=== PATIENT | male | born 1930 | race Caucasian/White ===

== ENCOUNTER 2017-03-20 22:08 | Emergency (ER) | payer MEDICARE, BC ==
[~2017-03-20 22:08] MED LIST: AMOXICILLIN500 MG PO; ARICEPT10 MG PO; ASPIRIN81 MG PO; BACTRIM DS1 TAB PO; CEPHALEXIN250 MG PO; CIPROFLOXACN500 MG PO; CYMBALTA20 MG PO; NAMENDA10 MG PO; RAPAFLO8 MG PO; [UNRECOGNIZED DRUG - OTHER] EX
== END 2017-03-20 22:24 | disposition left against medical advice (07) ==
LOC: ED 22:08 → LWOBS 22:24
DX: Z91.19 Patient's noncompliance with other medical treatment and regimen (principal)

== ENCOUNTER 2017-03-21 11:29 | Emergency (ER) | payer MEDICARE, BC ==
[~2017-03-21] VITALS: Ht 180.3 cm; Wt 75.0 kg
[2017-03-21 12:30] VITALS: BP 131/74
== END 2017-03-21 12:36 | disposition home or self-care (01) ==
LOC: ED 11:29
PROC: 0T2BX0Z Change Drainage Device in Bladder, External Approach (ICD-10-PCS; principal; 2017-03-21)
DX: T83.090A Other mechanical complication of cystostomy catheter, initial encounter (principal); G30.9 Alzheimer's disease, unspecified; F02.80 Dementia in other diseases classified elsewhere, unspecified severity, without behavioral disturbance, psychotic disturbance, mood disturbance, and anxiety; N40.0 Benign prostatic hyperplasia without lower urinary tract symptoms; Y84.6 Urinary catheterization as the cause of abnormal reaction of the patient, or of later complication, without mention of misadventure at the time of the procedure

== ENCOUNTER 2017-04-15 07:20 | Emergency (ER) | payer MEDICARE, BC ==
[~2017-04-15] VITALS: Ht 180.3 cm; Wt 73.4 kg
[2017-04-15 08:28] LABS: URINE BILIRUBIN - DIPSTICK NEGATIVE (NEGATIVE); URINE BLOOD DIPSTICK SMALL (NEGATIVE); URINE CLARITY SLIGHT CLOUDY; URINE COLOR YELLOW; URINE GLUCOSE - DIPSTICK NEGATIVE (NEGATIVE); URINE KETONE NEGATIVE (NEGATIVE); URINE PH 6.5 (4.5-8.0); URINE PROTEIN - DIPSTICK NEGATIVE (NEG-TRACE); URINE SPECIFIC GRAVITY 1.015; URINE UROBILINOGEN - DIPSTICK 0.2 E.U./dL (0.2)
[2017-04-15 08:30] LABS: URINE LEUK ESTERASE MODERATE (NEGATIVE); URINE NITRITE - DIPSTICK POSITIVE (Negative)
[2017-04-15 08:31] LABS: URINE WBC >100 WBC/hpf (0-5)
[2017-04-15 08:32] LABS: URINE BACTERIA MODERATE hpf; URINE RBC 0-2 RBC/hpf (0-5)
[2017-04-15] MEDS ORDERED: BACTRIM DS1 TAB PO (08:40)
[2017-04-15 08:46] VITALS: BP 138/73
== END 2017-04-15 08:46 | disposition home or self-care (01) ==
LOC: ED 07:20
PROVIDERS: Emergency Medicine
PROC: 0T2BX0Z Change Drainage Device in Bladder, External Approach (ICD-10-PCS; principal; 2017-04-15)
DX: Z46.6 Encounter for fitting and adjustment of urinary device (principal); B96.4 Proteus (mirabilis) (morganii) as the cause of diseases classified elsewhere

== ENCOUNTER 2017-06-27 19:20 | Emergency (ER) | payer MEDICARE, BC ==
[~2017-06-27] VITALS: Ht 180.3 cm; Wt 75.8 kg
[2017-06-27] MEDS ORDERED: CYMBALTA60 MG PO (19:35)
[2017-06-27 22:00] VITALS: BP 131/71
[2017-06-27] MEDS ORDERED: CIPROFLOXACN500 MG PO (22:09)
== END 2017-06-27 22:00 | disposition home or self-care (01) ==
LOC: ED 19:20
DX: T83.038A Leakage of other urinary catheter, initial encounter (principal); N40.1 Benign prostatic hyperplasia with lower urinary tract symptoms; G30.9 Alzheimer's disease, unspecified; F02.80 Dementia in other diseases classified elsewhere, unspecified severity, without behavioral disturbance, psychotic disturbance, mood disturbance, and anxiety

== ENCOUNTER 2017-09-17 20:10 | Emergency (ER) | payer MEDICARE, BC ==
[~2017-09-17] VITALS: Ht 180.3 cm; Wt 73.8 kg
[~2017-09-17 20:10] MED LIST changes: +CYMBALTA60 MG PO
[2017-09-17 21:37] VITALS: BP 149/72
== END 2017-09-17 21:41 | disposition home or self-care (01) ==
LOC: ED 20:10
PROC: 0T2BX0Z Change Drainage Device in Bladder, External Approach (ICD-10-PCS; principal; 2017-09-17)
DX: Z46.6 Encounter for fitting and adjustment of urinary device (principal); R32 Unspecified urinary incontinence; G30.9 Alzheimer's disease, unspecified; F02.80 Dementia in other diseases classified elsewhere, unspecified severity, without behavioral disturbance, psychotic disturbance, mood disturbance, and anxiety; N40.0 Benign prostatic hyperplasia without lower urinary tract symptoms

== ENCOUNTER 2017-10-04 21:21 | Inpatient (IN) | payer MEDICARE, BC ==
[~2017-10-04] VITALS: Ht 180.3 cm; Wt 75.7 kg
[2017-10-04] MEDS ORDERED: COREG3.125 MG PO (21:30)
--- NOTE | 2017-10-04 21:33 | NUR ---
PT REFUSED WC, AMBULATED TO ER ROOM 8 WITH DAUGHTER. PT LIVES WITH SPOUSE BUT DAUGHTER STOPS IN ALL DAY TO CHECK UP ON PARENTS. PT ARRIVED WITH A CATH ROSIE.
--- NOTE | 2017-10-04 21:34 | NUR ---
PT. DAUGHTER C/O THE LAST 3 DAYS HER DAD STATED HE HAS NOT FELT WELL. PT. TEMP. 100.1.
[2017-10-04 22:21] LABS: HEMATOCRIT 38.2 % (39.0-50.0); HEMOGLOBIN 12.7 g/dl (14.0-18.0); IMMATURE GRANULOCYTES 0.2 % (0.0-1.0); MEAN CORPUSCULAR HGB 32.2 pG CALC (26.0-32.0); MEAN CORPUSCULAR HGB CONC 33.2 g/L CALC (32.0-36.0); NEUT# 2.36 thou/uL (1.82-7.42); RED BLOOD COUNT 3.94 mill/uL (4.70-6.10); RED CELL DISTRI WIDTH 13.5 % (11.5-15.5)
[2017-10-04 22:32] LABS: URINE BILIRUBIN - DIPSTICK NEGATIVE (NEGATIVE); URINE BLOOD DIPSTICK SMALL (NEGATIVE); URINE COLOR YELLOW; URINE GLUCOSE - DIPSTICK NEGATIVE (NEGATIVE); URINE KETONE NEGATIVE (NEGATIVE); URINE PH 5.5 (4.5-8.0); URINE PROTEIN - DIPSTICK NEGATIVE (NEG-TRACE); URINE UROBILINOGEN - DIPSTICK 0.2 E.U./dL (0.2)
[2017-10-04 22:34] LABS: URINE CLARITY CLOUDY; URINE LEUK ESTERASE SMALL (NEGATIVE); URINE NITRITE - DIPSTICK POSITIVE (Negative)
[2017-10-04 22:35] LABS: ALBUMIN 3.5 g/dL (3.2-5.0); ALKALINE PHOSPHATASE 60 u/l (38-126); AMYLASE 57 u/l (30-110); ANION GAP 14 (6-22 (CALC)); BILIRUBIN, TOTAL 0.3 mg/dL (0.0-1.4); BUN 19 mg/dL (8-23); BUN/CREATININE RATIO 21 (12-20 (CALC)); CALCIUM 9.3 mg/dL (8.4-10.2); CARBON DIOXIDE 29 mmol/l (22-30); CHLORIDE 99 mmol/l (95-108); CREATININE 0.9 mg/dL (0.7-1.3); GFR > 60 ML/MIN (>=60 (CALC)); GFR FOR AFR.AMER. > 60 ML/MIN (>=60 (CALC)); GLUCOSE 87 mg/dL (82-115); LIPASE 100 u/l (23-300); SGOT/AST 23 u/l (19-48); SGPT/ALT 32 u/l (11-66); SODIUM 137 mmol/l (137-146); TOTAL PROTEIN 6.2 g/dL (6.3-8.2)
[2017-10-04 22:39] LABS: URINE BACTERIA FEW hpf; URINE SQUAMOUS EPITHELIAL CELL FEW EPI/hpf (0-FEW)
--- NOTE | 2017-10-04 22:57 | NUR ---
ivf, and iv abt. started as per md order.
--- NOTE | 2017-10-04 23:57 | NUR ---
RESTING ON STRETCHER, NO C/O. IVF INFUSING WELL, NO REDNESS OR EDEMA NOTED.
--- NOTE | 2017-10-05 | NUR ---
IN ROOM TO DISCUSS CLINICAL FINDINGS WITH PT. DAUGHTER AND MAKE HER AWARE OF ADMISSION, VERBALIZED UNDERSTANDING.
--- NOTE | 2017-10-05 01:10 | NUR ---
Admission Note Report Given to: anel tolliver Transported by: Wheelchair x Stretcher Transported with: x Nurse Transporter x [id number]
[2017-10-05 01:50] VITALS: BP 153/77
--- NOTE | 2017-10-05 01:50 | NUR ---
pt. taken to mi via stretcher.
--- NOTE | 2017-10-05 02:00 | NUR ---
PT TRANSFERRED TO FLOOR VIA STRETCHER ACCOMPANIED BY DAUGHTER AND ZEFERINO ONEIL;PT AMBULATED WITH 1 PERSON ASSIST AND WEAK GAIT TO BEDSIDE;WT AND VS OBTAINED BY TIERRA BURTON;PT DROWSY AND VERY DIFFICULT TO KEEP AWAKE AT THIS TIME;DAUGHTER ASSISTED IN ASSESSMENT;#22G TO LAC FLUSHED,PATENT AND NS @ 125ML/HR STARTED;MUTIPLE SCABS NOTED THROUGHOUT BODY,SKIN OTHER SIMENTAL INTACT;RESPIRATIONS EVEN AND UNLABORED ON RA;PT ALERT TO SELF ONLY,BED ALARM TO BE PLACED ON PT WHEN DAUGHTER IS NOT AT BEDSIDE;INDWELLING CATHETER NOTED AND WAS CHANGED 2 WEEKS AGO;PT DENIES ANY PAIN OR DISCOMFORTS;SAFETY PRECAUTIONS REINFORCED AND FALL PRECAUTIONS PUT INTO PLACE;BLANKETS AND PILLOWS PROVIDED FOR DAUGHTER;CALL LIGHT IN REACH;WILL CONTINUE TO MONITOR
[2017-10-05 05:36] VITALS: BP 167/75
--- NOTE | 2017-10-05 06:05 | NUR ---
PT APPEARS TO BE SLEEPING WITH EYES CLOSED AND DAUGHTER AT BEDSIDE;NO S/S OF DISTRESS NOTED;RESPIRATIONS EVEN AND UNLABORED ON RA;IV FLUIDS INFUSING WELL TO LAC;TELE MONITOR IN PLACE;FALL PRECAUTIONS IN PLACE;CALL LIGHT IN REACH;WILL CONTINUE TO MONITOR
--- NOTE | 2017-10-05 07:00 | NUR ---
RECEIVED BEDSIDE REPORT FROM ERICKA QUINTANILLA. RESTING IN BED WITH EYES CLOSED, AWAKENS EASILY. RESPS EVEN AND UNLABORED ON ROOM AIR. SUPRA PUBIC CATH DRAINING CLEAR YELLOW URINE TO GRAVITY, STRAP TO UPPER RIGHT LEG. #22 LAC INFUSING WITHOUT DIFFICULTY, SITE APPEARS HEALTHY. DENIES PAIN OR DISCOMFORT. DAUGHTER AT BEDSIDE. PLAN OF CARE DISCUSSED. SAFETY PRECAUTIONS REINFORCED. BED ALARM ON FOR SAFETY. BED IN LOWEST POSITION WITH WHEELS LOCKED. CALL LIGHT WITHIN REACH. WILL CONTINUE TO MONITOR.
[2017-10-05 08:57] VITALS: BP 143/59
--- NOTE | 2017-10-05 10:40 | NUR ---
DR BOWER IN WITH PT, NEW ORDERS RECEIVED.
--- NOTE | 2017-10-05 12:00 | NUR ---
RESTING IN BED WITH EYES CLOSED, AWAKENS EASILY. RESPS EVEN AND UNLABORED ON ROOM AIR. #22 LAC INFUSING WITHOUT DIFFICULTY, SITE APPEARS HEALTHY. VOICES NO NEEDS AT THIS TIME. BED ALARM ON FOR SAFETY. CALL LIGHT WITHIN REACH. WILL CONTINUE TO MONITOR.
--- NOTE | 2017-10-05 14:15 | NUR ---
PHYSICAL THERAPY IN WITH PT.
--- NOTE | 2017-10-05 14:35 | NUR ---
GO to see patient to discuss about medications. The nurse in charge said he is confused and was not able to answer any medication questions. Will come another day to talk to him about his medications when he is with his family member.
[2017-10-05 15:58] VITALS: BP 154/72
--- NOTE | 2017-10-05 16:00 | NUR ---
RESTING IN BED WITH EYES CLOSED. RESPS EVEN AND UNALBORED ON ROOM AIR. VOICES NO NEEDS AT THIS TIME. DAUGHTER AT BEDSIDE. CALL LIGHT WITHIN REACH. WILL CONTINUE TO MONITOR.
[2017-10-05 19:05] VITALS: BP 160/79
--- NOTE | 2017-10-05 20:14 | NUR ---
PT APPEARS TO BE SLEEPING IN SEMI FOWLERS POSITION WITH FAMILY MEMBER AT BEDSIDE;WOKE PT TO COMPLETE ASSESSMENT;PT DENIES ANY PAIN OR DISCOMFORTS;RESPIRATIONS EVEN AND UNLABORED ON RA;#22G TO LAC FLUSHED AND PATENT;SKIN INTACT;INDWELLING VELEZ CATHETER PATENT AND HANGING TO GRAVITY,LEG STRAP IN PLACE;PO FLUIDS EMCOURAGED;PT VOICES NO CONERNS OR COMPLAINTS AND IS EDUCATED TO CALL FOR ASSISTANCE IF NEEDED;FALL PRECAUTIONS IN PLACE;CALL LIGHT IN REACH;WILL CONTINUE TO MONITOR
--- NOTE | 2017-10-06 | NUR ---
PT APPEARS TO BE SLEEPING IN SUPINE POSITION;RESPIRATIONS EVEN AND UNLABORED ON RA;NO S/S OF DISTRESS NOTED;VELEZ NOTED HANGING TO GRAVITY;BED ALARM ON FOR SAFETY;CALL LIGHT IN REACH;WILL CONTINUE TO MONITOR
[2017-10-06 04:18] VITALS: BP 169/76
--- NOTE | 2017-10-06 04:20 | NUR ---
PT APPEARS TO BE SLEEPING AT THIS TIME WITH EYES CLOSED;NO S/S OF DISTRESS NOTED;RESPIRATIONS EVEN AND UNLABORED ON RA;INDWELLING CATHETER PATENT;VS OBTAINED;PT DENIES ANY NEEDS AND IS ENCOURAGED TO PO FLUIDS;BED ALARM ON FOR SAFETY;FALL PRECAUTIONS IN PLACE;WILL CONTINUE TO MONITOR
[2017-10-06 05:05] LABS: HEMOGLOBIN 12.2 g/dl (14.0-18.0); IMMATURE GRANULOCYTES 0.4 % (0.0-1.0); MEAN CELL VOLUME 97.1 fL CALC (80.0-100.0); NEUT# 1.73 thou/uL (1.82-7.42); RED BLOOD COUNT 3.81 mill/uL (4.70-6.10); RED CELL DISTRI WIDTH 13.6 % (11.5-15.5)
[2017-10-06 05:14] LABS: ANION GAP 11 (6-22 (CALC)); BUN 15 mg/dL (8-23); BUN/CREATININE RATIO 22 (12-20 (CALC)); CALCIUM 8.6 mg/dL (8.4-10.2); CARBON DIOXIDE 29 mmol/l (22-30); CHLORIDE 104 mmol/l (95-108); CREATININE 0.7 mg/dL (0.7-1.3); GFR > 60 ML/MIN (>=60 (CALC)); GFR FOR AFR.AMER. > 60 ML/MIN (>=60 (CALC)); GLUCOSE 94 mg/dL (82-115); POTASSIUM 4.3 mmol/l (3.5-5.1); SODIUM 139 mmol/l (137-146)
--- NOTE | 2017-10-06 07:00 | NUR ---
RECEIVED BEDSIDE REPORT FROM ERICKA QUINTANILLA. RESTING IN SUPINE POSITION WITH EYES CLOSED, AWAKENS EASILY. RESPS EVEN AND UNLABORED ON ROOM AIR. SUPRA PUBIC CATH DRAINING CLEAR YELLOW URINE TO GRAVITY, CATH STRAP IN PLACE TO UPPER RIGHT LEG. VOICES NO NEEDS AT THIS TIME. PO FLUIDS OFFERED. PLAN OF CARE DISCUSSED. SAFETY PRECAUTIONS REINFORCED. BED ALARM ON FOR SAFETY. BED IN LOWEST POSITION WITH WHEELS LOCKED. CALL LIGHT WITHIN REACH. ENCOURAGED PT TO CALL FOR ANY NEEDS.
[2017-10-06 07:35] VITALS: BP 160/69
--- NOTE | 2017-10-06 12:00 | NUR ---
DRESSING TO URINARY STOMA REMOVED. MODERATE AMT YELLOW CRUSTY DRAINAGE NOTED. ALDO STOMA CLEANSED WITH NORMAL SALINE, AIR DRIED, BACITRACIN APPLIED, COVERED WITH DRY DRESSING SECURED WITH PAPER TAPE. PT TOLERATED WITHOUT DIFFICULTY.
[2017-10-06 15:42] VITALS: BP 136/69
--- NOTE | 2017-10-06 16:11 | NUR ---
RESTING IN HIGH FOWLERS. RESPS EVEN AND UNLABORED ON ROOM AIR. SUPRA PUBIC CATH DRAINING CLEAR YELLOW URINE TO GRAVITY, STRAP TO UPPER RIGHT LEG. VOICES NO NEEDS AT THIS TIME. PO FLUIDS OFFERED. BED ALARM ON FOR SAFETY. FAMILY AT BEDSIDE. CALL LIGHT WITHIN REACH. ENCOURAGED PT TO CALL FOR ANY NEEDS.
--- NOTE | 2017-10-06 17:07 | NUR ---
PATIENT RESTING IN BED WITH SON AT BEDSIDE. SUPINE TO SIT WITH WEB MACHINE TENDER TO EDGE OF BED. AMB WITH RW 40 FT WITH LIGHT CGA AND SHUFFLING GAIT. GT X 15 MIN AND BACK TO BED INDEP WITH V.C.'S FOR SAFETY. PATIENT WILL BENEFIT FROM SHORT TERM INPATIENT REHAB FOR STRENGTH AND ENDURANCE. ABLE TO FOLLOW DIRECTIONS WELL. REQUIRES 24/7 SUPERVISION.
[2017-10-06 19:00] VITALS: BP 135/63
--- NOTE | 2017-10-06 20:15 | NUR ---
PT RESTING IN SUPINE POSITION;PT ALERT TO SELF ONLY AND IS RE-ORIENTED TO TIME AND PLACE;RESPIRATIONS EVEN AND UNLABORED ON RA;ASSESSMENT COMPLETED;PT DENIES ANY PAIN OR DISCOMFORTS;INDWELLING CATHETER NOTED TO BE PATENT,DRAINING CLEAR/YELLOW URINE TO GRAVITY WITH LEG STRAP IN PLACE;#20G TO LAC FLUSHED AND PATENT;BED ALARM PLACE ON PT FOR SAFETY;PO FLUIDS ENCOURAGED;NO NEEDS OR CONCERNS VOICED AT THIS TIME;FALL PRECAUTIONS IN PLACE;CALL LIGHT IN REACH;WILL CONTINUE TO MONITOR
--- NOTE | 2017-10-07 00:30 | NUR ---
PT PULLING AT CATHETER,APPEARS SLIGHTLY ANXIOUS;PT RE-ORIENTED TO PLACE AND TIME;CATHETER REMAINS PATENT;PT VOICES NO COMPLAINTS OR CONCERNS;RESPIRATIONS EVEN AND UNLABORED ON RA;SMALL LIGHT LEFT ON IN ROOM AND PT RE-POSITIONED; FALL PRECAUTIONS IN PLACE WITH BED ALARM ON;WILL CONTINUE TO MONITOR CLOSELY
[2017-10-07 04:27] VITALS: BP 151/87
--- NOTE | 2017-10-07 04:30 | NUR ---
PT RESTING IN SEMI FOWLERS POSITION WATCHING TV;RESPIRATIONS EVEN AND UNLABORED ON RA;PT RE-ORIENTED TO PLACE AND TIME;PT VOICES NO COMPLAINTS OR CONCERNS AT THIS TIME;VS OBTAINED;CATHETER PATENT AND HANGING TO GRAVITY;FALL PRECAUTIONS IN PLACE WITH BED ALARM ON;CALL LIGHT IN REACH;WILL CONTINUE TO MONITOR
[2017-10-07 05:36] LABS: HEMATOCRIT 38.2 % (39.0-50.0); HEMOGLOBIN 12.4 g/dl (14.0-18.0); IMMATURE GRANULOCYTES 0.4 % (0.0-1.0); MEAN CELL VOLUME 97.7 fL CALC (80.0-100.0); MEAN CORPUSCULAR HGB 31.7 pG CALC (26.0-32.0); MEAN CORPUSCULAR HGB CONC 32.5 g/L CALC (32.0-36.0); NEUT# 2.14 thou/uL (1.82-7.42); RED BLOOD COUNT 3.91 mill/uL (4.70-6.10); RED CELL DISTRI WIDTH 13.6 % (11.5-15.5)
[2017-10-07 05:56] LABS: ANION GAP 13 (6-22 (CALC)); BUN 16 mg/dL (8-23); BUN/CREATININE RATIO 23 (12-20 (CALC)); CARBON DIOXIDE 29 mmol/l (22-30); CHLORIDE 101 mmol/l (95-108); CREATININE 0.7 mg/dL (0.7-1.3); GFR > 60 ML/MIN (>=60 (CALC)); GFR FOR AFR.AMER. > 60 ML/MIN (>=60 (CALC)); GLUCOSE 88 mg/dL (82-115); POTASSIUM 4.6 mmol/l (3.5-5.1); SODIUM 139 mmol/l (137-146)
--- NOTE | 2017-10-07 07:00 | NUR ---
RECEIVED BEDSIDE REPORT FROM ERICKA QUINTANILLA. RESTING IN BED WITH EYES CLOSED, AWAKENS EASILY. RESPS EVEN AND UNLABORED ON ROOM AIR. SUPRA PUBIC CATH DRAINING CLEAR YELLOW URINE TO GRAVITY, STRAP TO UPPER RIGHT LEG. VOICES NO NEEDS. PLAN OF CARE DISCUSSED. SAFETY PRECAUTIONS REINFORCED. BED ALARM ON FOR SAFETY. BED IN LOWEST POSITION WITH WHEELS LOCKED. CALL LIGHT WITHIN REACH. ENCOURAGED PT TO CALL FOR ANY NEEDS.
[2017-10-07 08:06] VITALS: BP 143/77
--- NOTE | 2017-10-07 09:20 | NUR ---
DR BOWER IN WITH PT, NEW ORDERS RECEIVED.
[2017-10-07] MEDS ORDERED: BACITRACIN500 UNIT/G TOP (12:17)
[2017-10-07] MEDS ORDERED: FLORASTOR250 M1 PO (12:17)
[2017-10-07] MEDS ORDERED: Levaquin PO (12:17)
--- NOTE | 2017-10-07 12:45 | NUR ---
DRESSING TO SUPRA PUBIC CATH REMOVED. SMALL DEISY YELLOW COLORED DRAINAGE NOTED. ALDO STOMA CLEANSED WITH NORMAL SALINE, AIR DRIED. BACITRACIN OINTMENT APPLIED ALDO STOMA, COVERED WITH DRY DRESSING, SECURED WITH PAPER TAPE. TOLERATED WITHOUT DIFFICULTY.
[2017-10-07 15:29] VITALS: BP 156/72
--- NOTE | 2017-10-07 16:00 | NUR ---
RESTING IN BED WITH EYES CLOSED, AWAKENS EASILY. DENIES PAIN OR DISCOMFORT. PO FLUIDS OFFERED. CALL LIGHT WITHIN REACH. BED ALARM ON FOR SAFETY. WILL CONTINUE TO MONITOR.
[2017-10-07 19:00] VITALS: BP 125/66
--- NOTE | 2017-10-07 20:00 | NUR ---
PT RESTING IN BED. PT IS ALERT AND CONFUSED. PERRLA. RESP ARE EVEN AND UNLABORED. LUNGS ARE CLEAR. HR REGULAR. NO EDEMA NOTED. PULSES PALPABLE THROUGHOUT. BS ACTIVE. #22 LAC. NO REDNESS OR EDEMA NOTED. BED ALARM IN PLACE. WILL CONTINUE TO MONITOR
--- NOTE | 2017-10-07 23:00 | NUR ---
PT HAVING NOSE BLEED UPON BLOWING NOSE. WILL CONTINUE TO MONITOR.
--- NOTE | 2017-10-08 | NUR ---
PT RESTING AT THIS TIME WATCHING TV. BED ALARM INPLACE. NURSE IN ROOM TO ENSURE PT DOES NOT GET UP AND FALL DUE TO CONFUSION. RESP ARE EVEN AND UNLABORED. NO DISTRESS NOTED. WILL CONTINUE TO MONITOR
--- NOTE | 2017-10-08 04:00 | NUR ---
PT CONTINUES TO GET INTERMITTENT REST. PT CONTINUES TO BE CONFUSED. NURSE IN ROOM TO REORIENT PT. RESP EVEN AND UNLABORED. NO DISTRESS NOTED. WILL CONTINUE TO MONITOR
[2017-10-08 04:15] VITALS: BP 116/73
--- NOTE | 2017-10-08 07:00 | NUR ---
BEDSIDE REPORT RECIEVED FROM ZEFERINO RAO. PT ASLEEP ON ENTRY WITH BED ALARM IN PLACE. PT WOKE SPONTANEOUSLY TO SPEECH. NO COMPLAINTS OF PAIN FROM PT. RESP EVEN AND UNLABORED ON ROOM AIR. SAFETY PRECAUTIONS IN PLACE. CALL LIGHT WITHIN REACH. WILL CONTINUE TO MONITOR HOURLY.
[2017-10-08 07:34] VITALS: BP 164/80
--- NOTE | 2017-10-08 09:18 | NUR ---
SUPRAPUBIC CATHETER DRESSING CHANGE COMPLETED. STOMA IS BEEFY RED. NO S&S OF INFECTION. STOMA CLEANED WITH NS AND BACITRACIN APPLIED. COVERED WITH IMPREGNATED TELFA DRESSING. SECURED WITH TAPE.
--- NOTE | 2017-10-08 13:36 | NUR ---
ATTEMPTED TO CALL REPORT TO [facility]. PHONE NEVER ANSWERED BY STAFF.
--- NOTE | 2017-10-08 14:11 | NUR ---
ATTEMPTED TO CALL REPORT TO [facility] AGAIN. PHONE NEVER ANSWERED BY STAFF.
[2017-10-08 15:38] VITALS: BP 125/70
--- NOTE | 2017-10-08 17:10 | NUR ---
Discharge instructions given. Patient verbalizes understanding of same. Discharged in stable condition via Wheelchair to Home with family. All belongings sent with pt.
== END 2017-10-08 17:10 | disposition home health service (06) | DRG 698 ==
LOC: ED 21:21 → ED-I 10-05 00:30 → ED 10-05 00:56 → MS2 10-05 00:57
PROVIDERS: Emergency Medicine; Nurse Practitioner Family; ADMIT Internal Medicine; ATTEND Internal Medicine
DX: T83.518A Infection and inflammatory reaction due to other urinary catheter, initial encounter (principal); J18.9 Pneumonia, unspecified organism; N39.0 Urinary tract infection, site not specified; G30.9 Alzheimer's disease, unspecified; F05 Delirium due to known physiological condition; F02.80 Dementia in other diseases classified elsewhere, unspecified severity, without behavioral disturbance, psychotic disturbance, mood disturbance, and anxiety; D64.9 Anemia, unspecified; R32 Unspecified urinary incontinence; B96.20 Unspecified Escherichia coli [E. coli] as the cause of diseases classified elsewhere; Y84.6 Urinary catheterization as the cause of abnormal reaction of the patient, or of later complication, without mention of misadventure at the time of the procedure; Z87.440 Personal history of urinary (tract) infections; Z87.891 Personal history of nicotine dependence; Z95.0 Presence of cardiac pacemaker
CPT/HCPCS: J0692

== ENCOUNTER 2018-08-26 10:52 | Outpatient (RCR) | payer MEDICARE, BC ==
[2018-08-20 14:03] VITALS: BP 111/72
[2018-08-21 10:00] VITALS: BP 138/75
[2018-08-21 10:45] VITALS: BP 138/75
[2018-08-22 10:22] VITALS: BP 163/80
[2018-08-23 11:24] VITALS: BP 118/59
[2018-08-24 11:15] VITALS: BP 108/64
[2018-08-25 11:15] VITALS: BP 130/65
[~2018-08-26] VITALS: Ht 175.3 cm; Wt 74.4 kg
[~2018-08-26 10:52] MED LIST changes: +BACITRACIN500 UNIT/G TOP; +COREG3.125 MG PO; +FLORASTOR250 M1 PO; +Levaquin PO
[2018-08-26 11:46] VITALS: BP 129/68
== END 2018-08-26 11:35 | disposition home or self-care (01) ==
LOC: INF 10:52
PROVIDERS: ATTEND Internal Medicine
DX: N39.0 Urinary tract infection, site not specified (principal); B96.5 Pseudomonas (aeruginosa) (mallei) (pseudomallei) as the cause of diseases classified elsewhere
CPT/HCPCS: J0692